=== PATIENT | male | born 1950 | race Caucasian/White ===

== ENCOUNTER 2023-06-23 10:19 | Inpatient (IN) | payer MEDICARE, BC, SELFPAY ==
[2023-06-23 10:26] VITALS: BP 115/78; PULSE 105; RESP 18; TEMP 36.2; O2SAT 98; BMI 23.4
[2023-06-23] MEDS: 0.9 % SODIUM CHLORIDE 1000 ml 1,000 ML IV (10:45)
--- NOTE | 2023-06-23 10:57 | ED_ITS ---
HPI - Nausea/Vomiting/Diarrhea General Time Seen by Provider: 10:57 Date Seen: 06/23/23 Chief complaint: Nausea/Vomiting Stated complaint: Possible intestinal blockage Source: patient and RN notes reviewed Mode of arrival: ambulatory Limitations: no limitations History of Present Illness HPI Narrative: Wade is a very pleasant 73-year-old gentleman with history of enlarged prostate otherwise healthy who comes to the emergency room with his for evaluation regarding vomiting and inability to stool. Patient notes that over the past week he and his had been camping up [place]. He notes that they do have a camper and he is able to urinate during the night but he had held off on stooling because it was a walk to the out house. He states that he was stooling normally until the past 36 hours when he started noticing that his stools were a lot harder. Yesterday morning he started feeling nauseated and by the afternoon had episodes of vomiting. Vomiting also occur during the evening and now this morning. He has not stooled today. He has not noticed any blood in his stool. He has not had a fever. He notes that after vomiting his discomfort is much improved. Currently he denies any abdominal pain. Timothy has a history of bilateral inguinal hernia repair with mesh. He has not noticed any unusual weight loss over the last year. He did have constipation in need of an enema when he was 33 and had a tonsillectomy. At that time he had been on narcotics. No recent pain medications. Patient notes drinking water from a portable source at the campground. Otherwise did not drink any water from a [place] or river. Cipro antibiotic 3 weeks ago after a finger injury. This was for 5 days only. No known ill contacts. Bruise in his note that there were many ticks flies and mosquitos when they were up [place]. He does not report any tick being attached for an extended period. Notes when they got home he did fine did of deer tick but it was crawling and not attached. They have not noticed any lesions/bull's-eye appearing redness. Associated nausea: Yes Related Data Home Medications Medication Instructions Recorded Confirmed tamsulosin 0.4 mg capsule 0.4 mg PO DAILY 06/23/23 06/23/23 Allergies Allergy/AdvReac Type Severity Reaction Status Date / Time No Known Drug Allergies Allergy Verified 06/23/23 09:58 Review of Systems Status of ROS: Reports: 10 or more systems reviewed and unremarkable except as noted in History and below Const: Reports: chills; Denies: fever or fatigue ENMT: Denies: difficulty swallowing or hoarseness Cardio: Denies: chest pain or shortness of breath with exertion Resp: Denies: shortness of breath, cough or wheezing GI: Reports: abdominal pain (Intermittent), nausea, vomiting and constipation; Denies: diarrhea, difficulty swallowing or blood in stool : Denies: painful urination or urinary frequency Musculo: Denies: back pain Endo: Denies: fatigue Allergy/Immuno: Denies: wheezing PFSH PFS Social History Smoking Status: Former smoker How often do you have a drink containing alcohol: 2-4 times a month How many standard drinks containing alcohol do you have on a typical day: 1 or 2 AUDIT-C Alcohol total score: 2 Non-prescribed substance use: marijuana (any form) Exam Narrative: Exam Narrative: Alert and oriented. Eyes are clear. Face symmetrical. No obvious distress at this time. Heart with regular rate and rhythm and lungs are clear to auscultation. Abdomen is soft there is no tenderness palpated. I do think he is somewhat distended he is very thin. Lower extremities without edema. Rectal exam shows no evidence of hemorrhoids. Digital exam accomplished. No significant stool in the rectal vault. I did have patient bear down and there is no stool that seems to come down with that. Const: Vital Signs, click to edit/add: Vital Signs - 24 hr 06/23/23 10:26 06/23/23 13:01 Temperature 97.2 F L 97.9 F Pulse Rate [Right Pulse Oximeter] 105 H 81 Respiratory Rate 18 Blood Pressure [Ri ght Upper Arm] 115/78 117/78 Pulse Oximetry 98 95 Oxygen Delivery Me thod Room Air Room Air Documenting provider has reviewed patient's vital signs: yes Course Course Hospital Course: At this time differential diagnosis includes constipation, bowel obstruction, diverticulitis, colitis, ileus, gastritis. Initial plans were to do an enema but upon digital exam there was very little stool in the vault. I think we will check labs to include CBC, comprehensive, CRP, lipase and urinalysis. Will also go ahead with abdominal CT. Reevaluation(s) Reevaluation #1: Patient has had no further retching and continues to feel better. See 1 L of normal saline. Vital Signs Vital signs: Initial Vital Signs Temperature 97.2 F L 06/23/23 10:26 Temperature Source Temporal Artery Scan 06/23/23 10:26 Pulse Rate 105 H 06/23/23 10:26 Respiratory Rate 18 06/23/23 10:26 Blood Pressure 115/78 06/23/23 10:26 Blood Pressure Mean 90 06/23/23 10:26 Blood Pressure Position Sitting 06/23/23 10:26 Pulse Oximetry 98 06/23/23 10:26 Oxygen Delivery Method Room Air 06/23/23 10:26 Vital Signs Temperature 97.2 F L 06/23/23 10:26 Pulse Rate 105 H 06/23/23 10:26 Respiratory Rate 18 06/23/23 10:26 Blood Pressure 115/78 06/23/23 10:26 Pulse Oximetry 98 06/23/23 10:26 Oxygen Delivery Method Room Air 06/23/23 10:26 Temperature 97.9 F 06/23/23 13:01 Pulse Rate 81 06/23/23 13:01 Respiratory Rate 18 06/23/23 10:26 Blood Pressure 117/78 06/23/23 13:01 Pulse Oximetry 95 06/23/23 13:01 Oxygen Delivery Method Room Air 06/23/23 13:01 MDM - Nausea/Vomiting/Diarrhea MDM Narrative Medical decision making narrative: 1. Small bowel obstruction-transition point appears to be in the right lower quadrant. Likely secondary to adhesions in the area of the inguinal hernia repair. Vital signs as well as labs are reassuring at this time. CRP slightly elevated but patient has normal white count. I spoke with patient about the importance of bowel rest, fluids as well as nausea and vomiting control. He is agreeable to staying here in the hospital. 2. Vomiting-resolved after Zofran 4 mg. 1 L of normal saline given and will now continue with maintenance fluids at 125 mils per hour. At this time I do not feel an NG needs to be placed but will need to reconsider should he have vomiting resume. 3. Disposition-admission to the [facility] under the care of hospitalist. I did speak with Dr. Veras who accepts this patient. Unfortunately we do not have beds immediately available but we should have extra staffing and bed availability at 1900 hours. That is 5 hours from now. Medical Records Attestation: I reviewed the patient's medical records. Lab Data Attestation: I reviewed the patient's lab results. Labs: Lab Results 06/23/23 Range/Units 11:30 WBC 10.80 (4.50-11.00) K/uL RBC 5.76 (4.30-5.90) m/uL Hgb 16.1 (13.5-17.5) gm/dL Hct 49.1 (37.0-53.0) % MCV 85 (80-100) fL MCH 28 (26-34) pg MCHC 33 (32-36) gm/dL RDW Coeff of [place] 14.0 (11.5-15.5) % Plt Count 222 (140-440) K/uL Neut % (Auto) 79.5 H (42.0-72.0) % Lymph % (Auto) 10.5 L (20-44) % [place] % (Auto) 9.7 (0.0-11.0) % Eos % (Auto) 0.0 (0.0-7.0) % Baso % (Auto) 0.2 (0.0-3.0) % Neut # (Auto) 8.60 H (1.7-7.0) K/uL Lymph # (Auto) 1.10 (0.90-2.90) K/uL [place] # (Auto) 1.00 H (0.00-0.90) K/UL Eos # (Auto) 0.00 (0.00-0.50) K/uL Baso # (Auto) 0.02 (0.00-0.30) K/uL Abs Immat Gran (auto) 0.01 (0.00-0.30) K/uL Imm/Tot Granulo (auto) 0.1 % Sodium 135 (135-149) mmol/L Potassium 4.2 (3.6-5.1) mmol/L Chloride 100 (96-114) mmol/L Carbon Dioxide 22 (20-32) mmol/L BUN 19 (7-30) mg/dL Creatinine 1.0 (0.5-1.5) mg/dL Estimated Creat Clear 72.21 Estimated GFR 79 ml/min Glucose 139 H (60-115) mg/dL Calcium 9.7 (8.4-10.6) mg/dL Total Bilirubin 1.9 H (0.1-1.5) mg/dL AST 36 H (12-35) U/L ALT 25 (4-50) U/L Alkaline Phosphatase 80 (40-150) U/L C-Reactive Protein 1.3 H (0.5-1.0) mg/dL Total Protein 8.2 (6.0-8.3) g/dL Albumin 4.3 (3.3-5.0) g/dL Lipase 98 (23-300) U/L Stool Occult Blood Negative (Negative) Imaging Data CT scan - abdomen: Attestation: I have reviewed the pertinent imaging results. My impression: No obvious small-bowel distension and fluids. Radiologist's impression: Lower chest: Scattered atelectasis. Liver: Unremarkable. Normal in size and attenuation. No suspicious masses. Gallbladder and bile ducts: Unremarkable. No stones or inflammation. No biliary dilatation. Pancreas: Unremarkable. No mass or inflammation. Spleen: Unremarkable. Normal in size. No masses. Adrenal glands: Unremarkable. No nodules. Kidneys: Bilateral renal cysts. No suspicious masses, stones, or hydronephrosis. GI tract: Multiple dilated loops of small bowel with transition point in the right lower quadrant (series 2/image 108, series 4/image 56). Colonic diverticulosis without diverticulitis. Appendectomy. Vasculature: Abdominal aorta is normal in caliber. Mesenteric arteries are patent. Lymph nodes: No lymphadenopathy. Peritoneum/Abdominal Wall: Unremarkable. No sign of mass or infiltration. No free air or significant free fluid. Pelvis: Small volume free fluid in the pelvis. Prostatomegaly. Bones: Degenerative changes. IMPRESSION: Findings suggestive of small bowel obstruction with transition point in the right lower quadrant, possibly from adhesions. Small volume free fluid in the pelvis, likely reactive. Colonic diverticulosis without diverticulitis. Discharge Plan Discharge Clinical Impression: Small bowel obstruction Vomiting Qualifiers: Vomiting type: unspecified Nausea presence: with nausea Qualified Code(s): R11.2 - Nausea with vomiting, unspecified Patient Disposition: Admitted As Observation Condition: Improved
[2023-06-23] MEDS: ONDANSETRON 2 MG/ML inj 4 MG IVP ×3 (11:10→22:42)
--- NOTE | 2023-06-23 11:27 | CRLHL7_ITS ---
For Patients: As a result of the Century Cures Act, medical imaging exams and procedure reports are released immediately into your electronic medical record. You may view this report before your referring provider. If you have questions, please contact your health care provider. INDICATION: Vomiting. TECHNIQUE: CT abdomen and pelvis acquired with 84 cc Isovue 370 IV contrast. COMPARISON: 07/16/2020. FINDINGS: Lower chest: Scattered atelectasis. Liver: Unremarkable. Normal in size and attenuation. No suspicious masses. Gallbladder and bile ducts: Unremarkable. No stones or inflammation. No biliary dilatation. Pancreas: Unremarkable. No mass or inflammation. Spleen: Unremarkable. Normal in size. No masses. Adrenal glands: Unremarkable. No nodules. Kidneys: Bilateral renal cysts. No suspicious masses, stones, or hydronephrosis. GI tract: Multiple dilated loops of small bowel with transition point in the right lower quadrant (series 2/image 108, series 4/image 56). Colonic diverticulosis without diverticulitis. Appendectomy. Vasculature: Abdominal aorta is normal in caliber. Mesenteric arteries are patent. Lymph nodes: No lymphadenopathy. Peritoneum/Abdominal Wall: Unremarkable. No sign of mass or infiltration. No free air or significant free fluid. Pelvis: Small volume free fluid in the pelvis. Prostatomegaly. Bones: Degenerative changes. IMPRESSION: Findings suggestive of small bowel obstruction with transition point in the right lower quadrant, possibly from adhesions. Small volume free fluid in the pelvis, likely reactive. Colonic diverticulosis without diverticulitis. Please note that all CT scans at this facility use dose modulation, iterative reconstruction, and/or weight-based dosing when appropriate to reduce radiation dose to as low as reasonably achievable. Dictated by Maik Wlid MD @ 06/23/2023 1:18:08 PM (Electronically Signed)
[2023-06-23 11:40] LABS: Basophils Absolute Auto 0.02 K/uL (0.00-0.30); Basophils Percent Auto 0.2 % (0.0-3.0); Hematocrit 49.1 % (37.0-53.0); Hemoglobin* 16.1 gm/dL (13.5-17.5); Immature Granulocytes Abs Auto 0.01 K/uL (0.00-0.30); Immature Granulocytes Pct Auto 0.1 %; Lymphocytes Percent Auto 10.5 % (20-44); Mean Corpuscular HGB Conc 33 gm/dL (32-36); Mean Corpuscular Hemoglobin 28 pg (26-34); Mean Corpuscular Volume 85 fL (80-100); Monocytes Percent Auto 9.7 % (0.0-11.0); Neutrophils Percent Auto 79.5 % (42.0-72.0); Platelet Count* 222 K/uL (140-440); Red Blood Count 5.76 m/uL (4.30-5.90)
[2023-06-23 11:49] LABS: Slide Review Reflex No
[2023-06-23 11:56] LABS: Albumin* 4.3 g/dL (3.3-5.0); Chloride* 100 mmol/L (96-114); Potassium* 4.2 mmol/L (3.6-5.1); Sodium* 135 mmol/L (135-149)
[2023-06-23 11:57] LABS: Fecal Occult Blood* Negative (Negative)
[2023-06-23 11:58] LABS: Est. Creatinine Clearance* 72.21; Estimated Glomerular Filt Rate 79 ml/min
[2023-06-23 11:59] LABS: Alanine Aminotransferase* 25 U/L (4-50); Alkaline Phosphatase* 80 U/L (40-150); Aspartate Amino Transferase* 36 U/L (12-35); Bilirubin Total* 1.9 mg/dL (0.1-1.5); Blood Urea Nitrogen* 19 mg/dL (7-30); Carbon Dioxide* 22 mmol/L (20-32); Glucose* 139 mg/dL (60-115); Total Protein* 8.2 g/dL (6.0-8.3)
[2023-06-23 12:00] LABS: Calcium* 9.7 mg/dL (8.4-10.6); Lipase* 98 U/L (23-300)
[2023-06-23 12:02] LABS: C Reactive Protein* 1.3 mg/dL (0.5-1.0)
[2023-06-23] MEDS: DOCUSATE SODIUM/BENZOCAINE 5 ML ENEMA PR (12:15)
[2023-06-23 13:01] VITALS: BP 117/78; PULSE 81; TEMP 36.6; O2SAT 95
[2023-06-23] MEDS: 0.9 % SODIUM CHLORIDE 1000 ml 1,000 ML 125 ML IV ×2 (13:51→21:30)
[2023-06-23 14:42] LABS: Appearance Urine Clear (Clear); Bilirubin Urine Negative (Negative); Blood Urine 1+ (Negative); Color Urine Yellow (Yellow); Glucose Urine Negative (Negative); Ketones Urine 2+ (Negative); Leukocyte Esterase Urine Negative (Negative); Nitrite Urine Negative (Negative); Protein Urine Trace (Negative); Specific Gravity Urine 1.015 (1.000-1.030); Urobilinogen Urine 0.2 (0.2-1.0); pH Urine 5.5 (5.0-8.5)
[2023-06-23 15:11] LABS: WBC Urine 0-2 (0-5)
[2023-06-23 15:12] LABS: Bacteria Urine Few
[2023-06-23 15:13] LABS: Hyaline Casts Urine Few (None-Few)
--- NOTE | 2023-06-23 16:19 | CRLHL7_ITS ---
For Patients: As a result of the Century Cures Act, medical imaging exams and procedure reports are released immediately into your electronic medical record. You may view this report before your referring provider. If you have questions, please contact your health care provider. INDICATION: Verify NG tube placement. TECHNIQUE: Chest 1 view. COMPARISON: Chest radiograph 07/16/[address] abdomen and pelvis 06/23/2023. FINDINGS: The enteric tube tip is in the stomach approximately 6 cm distal to the GE junction. The side hole is not well visualized but likely above the GE junction. The cardiomediastinal silhouette size is normal. There is no focal pulmonary opacity, pleural effusion or pneumothorax. The visualized osseous structures are unremarkable for age. Impression: Enteric tube tip is in the stomach. The side hole is not well visualized but is likely above the GE junction. Dictated by Kindra Jaquez MD @ 06/23/2023 4:57:22 PM (Electronically Signed)
--- NOTE | 2023-06-23 16:50 | ED.NURSE ---
NG placed in ED, clamp set at 55 cm x-ray performed awaiting confirmation , pt hooked to LIS, positive production of gastric content.
[2023-06-23 19:30] VITALS: O2SAT 94
--- NOTE | 2023-06-23 19:43 | P.IMHP_ITS ---
Hospitalist- H&P: HPI History of Present Illness Date Seen: 06/23/23 Chief complaint: Possible intestinal blockage Narrative: Wade Wong is a 73 year old male presented through the emergency department for concerns of bilateral lower abdominal pain. He recently broke his right 3rd finger playing softball; he did not receive or take any narcotics for this. He was in his usual state of health otherwise when he had some coffee Saturday morning and then developed bilateral lower abdominal pain. By the afternoon he felt bloated. He tried some smooth move tea and prune juice thinking that he was just constipated, but then started having projectile vomiting. He denies any fever, bloody or coffee-ground emesis, travel, recent sick contacts or suspect food. He has had very little flatus during this time frame, but maybe had a little this morning. His last bowel movement was yesterday morning. He usually goes every day. He has no family history of bowel disease. Review of Systems Status of ROS: Reports: 10 or more systems reviewed and unremarkable except as noted in History and below [facility] Medical History (Updated 06/23/23 @ 15:43 by Jael Winn MD) Closed nondisplaced fracture of phalanx of right middle finger ?S62.602A - Fracture of unspecified phalanx of right middle finger, initial encounter for closed fracture (ICD-10) Bilateral sensorineural hearing loss ?H90.3 - Sensorineural hearing loss, bilateral (ICD-10) BPH with urinary obstruction ?N40.1 - Benign prostatic hyperplasia with lower urinary tract symptoms (ICD- 10) ?N13.8 - Other obstructive and reflux uropathy (ICD-10) Prediabetes ?R73.03 - Prediabetes (ICD-10) Benign neoplasm of colon ?D12.6 - Benign neoplasm of colon, unspecified (ICD-10) Chronic prostatitis ?N41.1 - Chronic prostatitis (ICD-10) Mixed hyperlipidemia ?E78.2 - Mixed hyperlipidemia (ICD-10) Surgical History (Updated 06/23/23 @ 14:55 by Jael Winn MD) H/O vasectomy ?Z98.52 - Vasectomy status (ICD-10) Hx of tonsillectomy ?Z90.89 - Acquired absence of other organs (ICD-10) History of inguinal herniorrhaphy ?Z98.890 - Other specified postprocedural states (ICD-10) ?Z87.19 - Personal history of other diseases of the digestive system (ICD-10) H/O hernia repair ?Z98.890 - Other specified postprocedural states (ICD-10) ?Z87.19 - Personal history of other diseases of the digestive system (ICD-10) Hx of colonoscopy ?Z98.890 - Other specified postprocedural states (ICD-10) H/O cataract extraction ?Z98.49 - Cataract extraction status, unspecified eye (ICD-10) Hx of appendectomy ?Z90.49 - Acquired absence of other specified parts of digestive tract (ICD- 10) Social History (Updated 06/23/23 @ 19:45 by Jael Winn MD) Narrative: Lives independently with , Rebecca. Denies tobacco use having quit 15-20 years ago and smoked 20 pack years. Drinks 5 beers per week, usually no more than 1 at a sitting. Denies recreational drug use. Smoking Status: Former smoker How often do you have a drink containing alcohol: 2-4 times a month How many standard drinks containing alcohol do you have on a typical day: 1 or 2 AUDIT-C Alcohol total score: 2 Meds Home Medications and Allergies Home Medications Medication Instructions Recorded Confirmed Type ciprofloxacin HCl 250 mg tablet 250 mg PO DIRECTED PRN 06/23/23 06/23/23 History tamsulosin 0.4 mg capsule 0.4 mg PO DAILY@12 06/23/23 06/23/23 History Allergies Allergy/AdvReac Type Severity Reaction Status Date / Time No Known Drug Allergies Allergy Verified 06/23/23 09:58 Exam Narrative: Exam Narrative: General: No acute distress. Awake alert oriented x3. Tall, lanky. HEENT: Normocephalic atraumatic, pupils equally round and reactive to light and accommodation. Oropharynx clear. Mucous membranes are moist. No cervical lymphadenopathy, thyromegaly or carotid bruits. No JVD. Cardiovascular: Regular rate and rhythm. No murmurs, gallops, or rubs. Chest: No increased work of breathing. Clear to auscultation bilaterally. No crackles or wheezes. Abdomen: Bowel sounds hypoactive. Soft, mildly distended, tender bilaterally in the lower abdomen, right more than left. No hepatosplenomegaly or masses. Extremities: Right middle finger is in a splint. No edema, no cyanosis or clubbing. Skin: No jaundice, no pallor, no rashes. Neuro: Grossly intact. No focal deficits. Const: Vital Signs, click to edit/add: Vital Signs - 24 hr 06/23/23 10:26 06/23/23 13:01 Temperature 97.2 F L 97.9 F Pulse Rate [Right Pulse Oximeter] 105 H 81 Respiratory Rate 18 Blood Pressure [Ri ght Upper Arm] 115/78 117/78 Pulse Oximetry 98 95 Oxygen Delivery Me thod Room Air Room Air Documenting provider has reviewed patient's vital signs: yes Hospitalist - H&P: Result Labs Labs: Short CBC 06/23/23 Range/Units 11:30 WBC 10.80 (4.50-11.00) K/uL Hgb 16.1 (13.5-17.5) gm/dL Hct 49.1 (37.0-53.0) % Plt Count 222 (140-440) K/uL BMP 06/23/23 11:30 Sodium 135 Potassium 4.2 Chloride 100 Carbon Dioxide 22 BUN 19 Creatinine 1.0 Glucose 139 H Calcium 9.7 Liver Function 06/23/23 Range/Units 11:30 Total Bilirubin 1.9 H (0.1-1.5) mg/dL AST 36 H (12-35) U/L ALT 25 (4-50) U/L Alkaline Phosphatase 80 (40-150) U/L Albumin 4.3 (3.3-5.0) g/dL Urine 06/23/23 Range/Units 13:40 Urine Color Yellow (Yellow) Urine Appearance Clear (Clear) Urine pH 5.5 (5.0-8.5) Ur Specific [place] 1.015 (1.000-1.030) Urine Protein Trace A (Negative) Urine Glucose (UA) Negative (Negative) Ordering Physician: Audrey Liriano M.D. Date of Service: 06/23/23 Procedure(s): CT abdomen pelvis w con Accession Number(s): [id number] cc: Jose F Walsh M.D.; Audrey Liriano M.D.~ For Patients: As a result of the Century Cures Act, medical imaging exams and procedure reports are released immediately into your electronic medical record. You may view this report before your referring provider. If you have questions, please contact your health care provider. INDICATION: Vomiting. TECHNIQUE: CT abdomen and pelvis acquired with 84 cc Isovue 370 IV contrast. COMPARISON: 07/16/2020. FINDINGS: Lower chest: Scattered atelectasis. Liver: Unremarkable. Normal in size and attenuation. No suspicious masses. Gallbladder and bile ducts: Unremarkable. No stones or inflammation. No biliary dilatation. Pancreas: Unremarkable. No mass or inflammation. Spleen: Unremarkable. Normal in size. No masses. Adrenal glands: Unremarkable. No nodules. Kidneys: Bilateral renal cysts. No suspicious masses, stones, or hydronephrosis. GI tract: Multiple dilated loops of small bowel with transition point in the right lower quadrant (series 2/image 108, series 4/image 56). Colonic diverticulosis without diverticulitis. Appendectomy. Vasculature: Abdominal aorta is normal in caliber. Mesenteric arteries are patent. Lymph nodes: No lymphadenopathy. Peritoneum/Abdominal Wall: Unremarkable. No sign of mass or infiltration. No free air or significant free fluid. Pelvis: Small volume free fluid in the pelvis. Prostatomegaly. Bones: Degenerative changes. IMPRESSION: Findings suggestive of small bowel obstruction with transition point in the right lower quadrant, possibly from adhesions. Small volume free fluid in the pelvis, likely reactive. Colonic diverticulosis without diverticulitis. Please note that all CT scans at this facility use dose modulation, iterative reconstruction, and/or weight-based dosing when appropriate to reduce radiation dose to as low as reasonably achievable. Dictated by Maik Wild MD @ 06/23/2023 1:18:08 PM (Electronically Signed) Ordering Physician: Audrey Liriano M.D. Date of Service: 06/23/23 Procedure(s): XR chest 1V portable Accession Number(s): [id number] cc: Jose F Walsh M.D.; Audrey Liriano M.D.~ For Patients: As a result of the 21st Century Cures Act, medical imaging exams and procedure reports are released immediately into your electronic medical record. You may view this report before your referring provider. If you have questions, please contact your health care provider. INDICATION: Verify NG tube placement. TECHNIQUE: Chest 1 view. COMPARISON: Chest radiograph 07/16/[address] abdomen and pelvis 06/23/2023. FINDINGS: The enteric tube tip is in the stomach approximately 6 cm distal to the GE junction. The side hole is not well visualized but likely above the GE junction. The cardiomediastinal silhouette size is normal. There is no focal pulmonary opacity, pleural effusion or pneumothorax. The visualized osseous structures are unremarkable for age. Impression: Enteric tube tip is in the stomach. The side hole is not well visualized but is likely above the GE junction. Dictated by Kindra Jaquez MD @ 06/23/2023 4:57:22 PM (Electronically Signed) Assessment and Plan Assessment and plan (1) Small bowel obstruction: Status: Acute Plan This is a fairly healthy individual who history an appendectomy and inguinal hernia repair who presents with a suspected small bowel obstruction with a transition point in the right lower quadrant where he feels the most pain. Admit for treatment of SBO which I suspect will take [address] NG tube to low intermittent suction and keep NPO. I will start IV fluids for hydration. If he does not improve or is worsening then may need to consult with General surgery. Monitor electrolytes while getting suction through NG tube.
--- NOTE | 2023-06-23 19:59 | CRLHL7_ITS ---
For Patients: As a result of the Century Cures Act, medical imaging exams and procedure reports are released immediately into your electronic medical record. You may view this report before your referring provider. If you have questions, please contact your health care provider. Indication: Advanced NG tube. Technique: Abdomen 1 view. Comparison: June 23, 2023. Findings/Impression: Bowel: Bowel pattern is normal. Subdiaphragmatic enteric tube with tip and proximal port within the stomach. Soft tissues: No sign of free air. No sign of soft tissue mass. No suspicious calcifications. Bones: Unremarkable for age. Dictated by Maik Wild MD @ 06/23/2023 9:00:03 PM (Electronically Signed)
[2023-06-23 20:10] VITALS: BP 117/70; RESP 20; TEMP 36.8; O2SAT 94; BMI 23.7
[2023-06-23] MEDS: SODIUM CHLORIDE 0.9 % (FLUSH) 10 ML SYRINGE 5 ML IVF ×2 (21:31→22:43)
[2023-06-23 22:52] VITALS: BP 106/68; PULSE 98; RESP 18; TEMP 36.8; O2SAT 98
[2023-06-24] VITALS (7 sets, daily range): BP systolic 109–117; BP diastolic 69–79; PULSE 76–94; RESP 16–20; TEMP 36.4–36.9; O2SAT 94–95
[2023-06-24] MEDS: 0.9 % SODIUM CHLORIDE 1000 ml 1,000 ML 125 ML IV ×3 (04:07→20:11)
--- NOTE | 2023-06-24 05:45 | PC.NURSE ---
[id number] Pt pleasant and cooperative, slept well during night. Orders given to advance NG tube to 60cm, completed and pt tolerated well, x-ray confirmed location. NG to LIS. Pt denies N/V this shift, some abd discomfort after eating ice chips, educated on importance of NPO status and limiting oral intake, pt acknowledged understanding.
[2023-06-24 07:20] LABS: Chloride* 104 mmol/L (96-114); Potassium* 3.7 mmol/L (3.6-5.1); Sodium* 138 mmol/L (135-149)
[2023-06-24 07:23] LABS: Blood Urea Nitrogen* 15 mg/dL (7-30); Calcium* 8.7 mg/dL (8.4-10.6); Carbon Dioxide* 26 mmol/L (20-32); Creatinine* 0.9 mg/dL (0.5-1.5); Est. Creatinine Clearance* 72.21; Estimated Glomerular Filt Rate 90 ml/min; Glucose* 93 mg/dL (60-115)
[2023-06-24] MEDS: TAMSULOSIN HCL 0.4 MG CAPSULE PO (12:05)
--- NOTE | 2023-06-24 14:15 | P.IMPN_ITS ---
Progress Note: A&P Assessment and plan (1) Small bowel obstruction: Problem details: - NG placed 06/23, still has fair amount of output; will remove when output decreases - passing flatus, reassuring - last colonoscopy in 2019 with tubular adenoma noted - History of bilateral hernia repairs Status: Acute (2) Elevated LFTs: Problem details: - elevated bilirubin and AST on admission, no liver disease history or alcohol overuse - will follow Status: Acute Plan - continue NG for now - lovenox for ppx Subjective Date Seen: 06/24/23 Interval history: Wade is tolerating his NG tube, does feel little bit better today. He is passing flatus. NG still has a fair amount of output at this time. Exam Narrative: Exam Narrative: GEN: Alert and oriented, pleasant and nontoxic in appearance HEENT: Normal external ears, EOMIs bilaterally, no scleral icterus CV: RRR, No concerning murmurs R: LCTA bilaterally without concerning wheezing, air movement adequate Ab: Mild distension, tolerates palpation, hypoactive bowel sounds throughout Ext: wwp, no concerning edema Skin: No concerning skin lesions or rashes on exposed skin Neuro: Nonfocal Psych: Appropriate Const: Vital Signs, click to edit/add: Vital Signs - 24 hr 06/23/23 19:30 06/23/23 20:10 06/23/23 22:52 Temperature 98.2 F 98.2 F Pulse Rate [Pulse Oximeter] 98 Respiratory Rate 20 18 Blood Pressure [Ri ght Arm] 117/70 106/68 Pulse Oximetry 94 94 98 Oxygen Delivery Me thod Room Air Room Air 06/24/23 02:39 06/24/23 08:30 06/24/23 11:00 Temperature 98.4 F 98.4 F Pulse Rate [Pulse Oximeter] 77 76 Respiratory Rate 18 16 18 Blood Pressure [Ri ght Arm] 110/73 109/70 Pulse Oximetry 95 Oxygen Delivery Me thod Room Air Labs Labs: Laboratory Results - last 24 hr 06/23/23 06/24/23 13:40 06:37 Sodium 138 Potassium 3.7 Chloride 104 Carbon Dioxide 26 BUN 15 Creatinine 0.9 Estimated Creat Clear 72.21 Estimated GFR 90 Glucose 93 Calcium 8.7 Urine Color Yellow Urine Appearance Clear Urine pH 5.5 Ur Specific [place] 1.015 Urine Protein Trace A Urine Glucose (UA) Negative Urine Ketones 2+ A Urine Blood 1+ A Urine Nitrite Negative Urine Bilirubin Negative Urine Urobilinogen 0.2 Ur Leukocyte Esterase Negative Urine RBC 5-10 A Urine WBC 0-2 Ur Squamous Epith Cells None Urine Bacteria Few A Hyaline Casts Few
--- NOTE | 2023-06-24 17:27 | PC.NURSE ---
Patient was up ambulating with stand by assist and no assistive devices. Up x4 in hallway. Tolerating well. Does occasionally report abdominal discomfort that he states is gas pain after ambulating that resolves with rest. Requiring no additional interventions. Patient reports passing gas x2 this shift. Tolerating sips and chips. NG patent on LIS. IV patent.
[2023-06-24] MEDS: SODIUM CHLORIDE 0.9 % (FLUSH) 10 ML SYRINGE 5 ML IVF (20:19)
--- NOTE | 2023-06-24 22:36 | PC.NURSE ---
[id number] Pt walking halls this shift, denies N/V, rated gas pain 2/10. NG tub in place to 60 cm, thick dark brown output which has slowed down since beginning of shift. Pt states he passed gas earlier in the day but hasn't this shift.
[2023-06-25 04:05] VITALS: BP 117/71; PULSE 79; RESP 18; TEMP 36.5; O2SAT 94
[2023-06-25] MEDS: 0.9 % SODIUM CHLORIDE 1000 ml 1,000 ML 125 ML IV ×3 (04:32→19:53)
[2023-06-25] MEDS: ONDANSETRON 2 MG/ML inj 4 MG IVP ×2 (04:38→21:10)
[2023-06-25] MEDS: SODIUM CHLORIDE 0.9 % (FLUSH) 10 ML SYRINGE 5 ML IVF (04:39)
[2023-06-25 06:55] LABS: Basophils Absolute Auto 0.05 K/uL (0.00-0.30); Basophils Percent Auto 0.6 % (0.0-3.0); Eosinophils Absolute Auto 0.01 K/uL (0.00-0.50); Eosinophils Percent Auto 0.1 % (0.0-7.0); Hematocrit 42.4 % (37.0-53.0); Hemoglobin* 13.4 gm/dL (13.5-17.5); Immature Granulocytes Abs Auto 0.01 K/uL (0.00-0.30); Immature Granulocytes Pct Auto 0.1 %; Lymphocytes Percent Auto 11.2 % (20-44); Mean Corpuscular HGB Conc 32 gm/dL (32-36); Mean Corpuscular Hemoglobin 28 pg (26-34); Mean Corpuscular Volume 88 fL (80-100); Monocytes Percent Auto 14.3 % (0.0-11.0); Neutrophils Percent Auto 73.7 % (42.0-72.0); Platelet Count* 158 K/uL (140-440); RDW Coefficient of Variation % 14.1 % (11.5-15.5); Red Blood Count 4.82 m/uL (4.30-5.90)
[2023-06-25 07:00] VITALS: BP 113/73; PULSE 87; RESP 16; RESP 18; TEMP 36.6; O2SAT 97
[2023-06-25 07:07] LABS: Slide Review Reflex No
--- NOTE | 2023-06-25 07:29 | PC.NURSE ---
Pt alert and oriented x3. Afebrile. Pt denies pain, chest pain, and vomiting. Pt reports nausea, managed with PRN medication. Pt NG tube was noted to have little output and pt reported not seeing the fluid move for a while, 30cc lavage was performed to NG tube, drainage was noted to be thick and brown, NG is now patent and draining. NG output was 170ml. Pt is up SBA and tolerating an NPO diet. ?
[2023-06-25 07:46] LABS: Albumin* 3.5 g/dL (3.3-5.0)
[2023-06-25 07:47] LABS: Chloride* 105 mmol/L (96-114); Potassium* 3.5 mmol/L (3.6-5.1); Sodium* 139 mmol/L (135-149)
[2023-06-25 07:49] LABS: Creatinine* 0.8 mg/dL (0.5-1.5); Est. Creatinine Clearance* 72.21; Estimated Glomerular Filt Rate 93 ml/min
[2023-06-25 07:50] LABS: Alanine Aminotransferase* 18 U/L (4-50); Alkaline Phosphatase* 64 U/L (40-150); Aspartate Amino Transferase* 26 U/L (12-35); Bilirubin Direct* 0.1 mg/dL (0.0-0.5); Bilirubin Total* 1.5 mg/dL (0.1-1.5); Blood Urea Nitrogen* 15 mg/dL (7-30); Calcium* 8.4 mg/dL (8.4-10.6); Carbon Dioxide* 26 mmol/L (20-32); Glucose* 97 mg/dL (60-115); Total Protein* 6.8 g/dL (6.0-8.3)
[2023-06-25 11:00] VITALS: BP 102/75; PULSE 87; RESP 18; TEMP 36; O2SAT 96
[2023-06-25] MEDS: TAMSULOSIN HCL 0.4 MG CAPSULE PO (12:25)
--- NOTE | 2023-06-25 14:35 | PC.NURSE ---
End of Shift: Pt pleasant and cooperative throughout shift, reporting pain 1/10. NG tube removed per MD order. Tolerating water, ice chips, jello and popsicles well with no c/o N/V. Continent with bladder utilizing bedside commode when in bed with IV otherwise toilet when ambulating. No BM throughout shift, pt reports flatus. Ambulating independently.
[2023-06-25 15:20] VITALS: BP 122/73; PULSE 72; RESP 18; TEMP 37; O2SAT 97
--- NOTE | 2023-06-25 16:41 | PM.IMPN1 ---
Progress Note: A&P Assessment and plan (1) Small bowel obstruction: Problem details: - NG placed 06/23, still has fair amount of output; will remove 06/25 and slowly advance diet - passing flatus, reassuring - last colonoscopy in 2019 with tubular adenoma noted - History of bilateral hernia repairs Status: Acute (2) Elevated LFTs: Problem details: - elevated bilirubin and AST on admission, no liver disease history or alcohol overuse - will follow Status: Acute Plan - NG out today and advance diet - Lovenox for prophylaxis - possibly home tomorrow Subjective Date Seen: 06/25/23 Interval history: Wade continues to feel a bit better each day. He is tolerating ice chips and popsicles without significant symptoms. NG output has decreased. He continues to pass flatus. Exam Narrative: Exam Narrative: GEN: Alert And oriented, nontoxic HEENT: EOMIs bilaterally, no scleral icterus CV: RRR, No concerning murmurs, rubs, or gallops R: LCTA bilaterally without concerning wheezing Ab: soft and tolerates exam, hypoactive bowel sounds noted throughout Ext: wwp, no concerning edema Skin: No concerning skin lesions or rashes on exposed skin Neuro: Nonfocal Psych: Appropriate Const: Vital Signs, click to edit/add: Vital Signs - 24 hr 06/24/23 19:00 06/24/23 19:30 06/24/23 23:00 Temperature 98.5 F Pulse Rate [Pulse Oximeter] 94 89 Respiratory Rate 18 20 Blood Pressure [Ri ght Arm] 117/79 Pulse Oximetry 94 94 Oxygen Delivery Me thod Room Air 06/24/23 23:00 06/25/23 04:05 06/25/23 07:00 Temperature 97.6 F 97.7 F Pulse Rate [Pulse Oximeter] 89 79 87 Respiratory Rate 20 18 16 Blood Pressure [Ri ght Arm] 116/72 117/71 Pulse Oximetry 94 94 Oxygen Delivery Me thod Room Air Room Air 06/25/23 07:00 06/25/23 11:00 06/25/23 15:20 Temperature 97.9 F 96.8 F L 98.6 F Pulse Rate [Pulse Oximeter] 87 87 72 Respiratory Rate 18 18 18 Blood Pressure [Ri ght Arm] 113/73 102/75 122/73 Pulse Oximetry 97 96 97 Oxygen Delivery Me thod Room Air Room Air Room Air Labs Labs: Laboratory Results - last 24 hr 06/25/23 06:30 WBC 8.20 RBC 4.82 Hgb 13.4 L Hct 42.4 MCV 88 MCH 28 MCHC 32 RDW Coeff of [place] 14.1 Plt Count 158 Neut % (Auto) 73.7 H Lymph % (Auto) 11.2 L [place] % (Auto) 14.3 H Eos % (Auto) 0.1 Baso % (Auto) 0.6 Neut # (Auto) 6.00 Lymph # (Auto) 0.90 [place] # (Auto) 1.20 H Eos # (Auto) 0.01 Baso # (Auto) 0.05 Abs Immat Gran (auto) 0.01 Imm/Tot Granulo (auto) 0.1 Sodium 139 Potassium 3.5 L Chloride 105 Carbon Dioxide 26 BUN 15 Creatinine 0.8 Estimated Creat Clear 72.21 Estimated GFR 93 Glucose 97 Calcium 8.4 Total Bilirubin 1.5 Direct Bilirubin 0.1 AST 26 ALT 18 Alkaline Phosphatase 64 Total Protein 6.8 Albumin 3.5
[2023-06-25] MEDS: PANTOPRAZOLE SODIUM 40 MG INJ IVP (18:03)
[2023-06-25 19:10] VITALS: BP 119/72; PULSE 73; RESP 16; TEMP 36.9; O2SAT 94
[2023-06-25] MEDS: ENOXAPARIN 40 MG/0.4 ML INJ SUBCUT (21:10)
--- NOTE | 2023-06-25 22:34 | PC.NURSE ---
Shift [id number]- Patient denies nausea this afternoon and rates pain 1-2/10, though is not interested in oral intake. He is up and walking the halls independently. This evening, he reports some mild nausea with increased hiccupping/ burping. He denies increase in pain. Continues to have disinterest in oral intake. Bowel sounds are hypoactive.
[2023-06-25 23:30] VITALS: BP 117/69; PULSE 74; RESP 16; TEMP 36.5; O2SAT 92; O2SAT 95
[2023-06-26] MEDS: 0.9 % SODIUM CHLORIDE 1000 ml 1,000 ML 125 ML IV ×3 (03:28→18:05)
[2023-06-26 03:35] VITALS: BP 112/70; PULSE 70; RESP 16; TEMP 37; O2SAT 94
--- NOTE | 2023-06-26 06:29 | PC.NURSE ---
Pt alert and oriented x3. Afebrile. Pt denies pain, chest pain, and N/V. When news writer's shift started 2300 INDIGO Blake attempted to inserted NG tube in pt?s left nare but was unable to advance NG tube, right nare was attempted and was successful. Pt?s NG tube is at 63 cm, doing intermittent suction, is patent, draining and was producing green output since 0500 is brown. Pt?s NG output after insertion was 850 ml within 20?mins.?NG output after the initial 850 ml was 950 ml. Pt is up SBA and tolerating an NPO diet with sips and chips. ?
[2023-06-26 06:43] LABS: Basophils Absolute Auto 0.04 K/uL (0.00-0.30); Basophils Percent Auto 0.8 % (0.0-3.0); Eosinophils Absolute Auto 0.04 K/uL (0.00-0.50); Eosinophils Percent Auto 0.8 % (0.0-7.0); Hematocrit 39.3 % (37.0-53.0); Hemoglobin* 12.8 gm/dL (13.5-17.5); Lymphocytes Percent Auto 18.8 % (20-44); Mean Corpuscular HGB Conc 33 gm/dL (32-36); Mean Corpuscular Hemoglobin 29 pg (26-34); Mean Corpuscular Volume 88 fL (80-100); Monocytes Percent Auto 19.2 % (0.0-11.0); Neutrophils Absolute Auto 3.12 K/uL (1.7-7.0); Neutrophils Percent Auto 60.4 % (42.0-72.0); Platelet Count* 144 K/uL (140-440); Red Blood Count 4.47 m/uL (4.30-5.90); White Blood Count* 5.16 K/uL (4.50-11.00)
[2023-06-26 06:48] LABS: Slide Review Reflex No
[2023-06-26 06:58] LABS: Albumin* 3.2 g/dL (3.3-5.0); Chloride* 106 mmol/L (96-114); Sodium* 139 mmol/L (135-149)
[2023-06-26 06:59] LABS: Potassium* 3.2 mmol/L (3.6-5.1)
[2023-06-26 07:00] VITALS: BP 107/67; PULSE 68; RESP 18; TEMP 37; O2SAT 94
[2023-06-26 07:00] LABS: Creatinine* 0.9 mg/dL (0.5-1.5); Est. Creatinine Clearance* 72.21; Estimated Glomerular Filt Rate 90 ml/min
[2023-06-26 07:01] LABS: Alanine Aminotransferase* 17 U/L (4-50); Alkaline Phosphatase* 58 U/L (40-150); Aspartate Amino Transferase* 24 U/L (12-35); Bilirubin Total* 1.2 mg/dL (0.1-1.5); Blood Urea Nitrogen* 14 mg/dL (7-30); Carbon Dioxide* 25 mmol/L (20-32); Glucose* 93 mg/dL (60-115); Total Protein* 6.3 g/dL (6.0-8.3)
[2023-06-26 07:02] LABS: Calcium* 8.1 mg/dL (8.4-10.6)
--- NOTE | 2023-06-26 10:19 | P.GSCN_ITS ---
History of Present Illness Consult details Date Seen: 06/26/23 Consult date: 06/26/23 Narrative: 73-year-old male was admitted to the hospital with abdominal pain and I was asked by Dr. Veras to see him in consultation. Patient developed lower abdominal pain and bloating over the weekend. On Saturday he presented to the emergency room because his pain was significantly worse. He also had hiccups. He had multiple episodes of vomiting and could not get comfortable to sleep at night. When he was admitted to the hospital, nasogastric tube was placed and his pain was getting better. His NG tube was removed yesterday. Patient continued ambulating. He tried some diet yesterday but had return of his pain to the milder extent. He also had hiccups. He had a lot of nausea yesterday and requested NG tube to be placed back in. Since his NG tube was placed, his pain is improved and he denies pain today. He denies nausea or vomiting. He thinks he passed gas 4 times. However, he still has hiccups. Upon admission he was found to have normal WBC and his WBC remained normal. He is hypokalemic at 3.2. An abdominal CT was obtained on 06/23/2023 that showed dilated loops of bowel with a transition point in the right lower quadrant. Review of Systems Narrative: General: no fevers HENT: no problems swallowing CV: no shortness of breath Resp: no cough GI: See above : Has a history of recurrent prostatitis Skin: no new rashes Musculoskeletal: no back pain Neuro: no muscle weakness [facility] Medical History Closed nondisplaced fracture of phalanx of right middle finger ?S62.602A - Fracture of unspecified phalanx of right middle finger, initial encounter for closed fracture (ICD-10) Bilateral sensorineural hearing loss ?H90.3 - Sensorineural hearing loss, bilateral (ICD-10) BPH with urinary obstruction ?N40.1 - Benign prostatic hyperplasia with lower urinary tract symptoms (ICD- 10) ?N13.8 - Other obstructive and reflux uropathy (ICD-10) Prediabetes ?R73.03 - Prediabetes (ICD-10) Benign neoplasm of colon ?D12.6 - Benign neoplasm of colon, unspecified (ICD-10) Chronic prostatitis ?N41.1 - Chronic prostatitis (ICD-10) Mixed hyperlipidemia ?E78.2 - Mixed hyperlipidemia (ICD-10) Surgical History (Updated 06/26/23 @ 10:26 by Kevin Rutledge MD) H/O vasectomy ?Z98.52 - Vasectomy status (ICD-10) Hx of tonsillectomy ?Z90.89 - Acquired absence of other organs (ICD-10) History of inguinal herniorrhaphy ?Z98.890 - Other specified postprocedural states (ICD-10) ?Z87.19 - Personal history of other diseases of the digestive system (ICD-10) H/O hernia repair ?Z98.890 - Other specified postprocedural states (ICD-10) ?Z87.19 - Personal history of other diseases of the digestive system (ICD-10) Hx of colonoscopy ?Z98.890 - Other specified postprocedural states (ICD-10) H/O cataract extraction ?Z98.49 - Cataract extraction status, unspecified eye (ICD-10) Hx of appendectomy ?Z90.49 - Acquired absence of other specified parts of digestive tract (ICD- 10) Social History Narrative: Lives independently with , Rebecca. Denies tobacco use having quit 15-20 years ago and smoked 20 pack years. Drinks 5 beers per week, usually no more than 1 at a sitting. Denies recreational drug use. What is your current living situation?: I presently have a place to live Problems where you live: no known problems Problems where you live details: none In the past 12 months, utilities in danger of being shut off: no In the past 12 mos, have been you worried that your food would run out before you had money to buy more?: never true In the past 12 mos, the food you bought just didn't last and you didn't have money to buy more?: never true Smoking Status: Former smoker What tobacco products do you use: cigarettes Years smoked: 18 Smoking quit date/years: >15 years ago Do you use any of these nicotine containing products: None Second hand tobacco smoke exposure: No How often do you have a drink containing alcohol: 2-3 times a week Alcohol type: beer How many standard drinks containing alcohol do you have on a typical day: 1 or 2 How often do you have six or more drinks on one occasion: Never AUDIT-C Alcohol total score: 3 Non-prescribed substance use: denies use Caffeine: No How often does anyone, including family, friends and others, physically hurt you : never How often does anyone, including family, friends and others, insult or talk down to you: never How often does anyone, including family, friends and others, threaten you with harm: never How often does anyone, including family, friends and others, scream or curse at you: never service: No Meds Home Medications and Allergies Home Medications Medication Instructions Recorded Confirmed Type ciprofloxacin HCl 250 mg tablet 250 mg PO DIRECTED PRN 06/23/23 06/23/23 History tamsulosin 0.4 mg capsule 0.4 mg PO DAILY@12 06/23/23 06/23/23 History Allergies Allergy/AdvReac Type Severity Reaction Status Date / Time No Known Drug Allergies Allergy Verified 06/23/23 09:58 Exam Narrative: Exam Narrative: General appearance: Alert, cooperative, and in no distress Pulmonary: Chest symmetric, lungs clear bilaterally Cardiovascular Heart: Regular rate and rhythm, S1, S2, no murmurs/rubs/gallops Gastrointestinal Abdominal: soft, not distended, not tender to percussion, minimal discomfort to palpation in epigastrium, no peritoneal signs. Patient is hiccuping during my exam. Skin: Normal skin color, texture, and turgor. No rashes or lesions. Psychiatric: Alert, cooperative, normal affect. Const: Vital Signs, click to edit/add: Vital Signs - 24 hr 06/25/23 11:00 06/25/23 15:20 06/25/23 15:20 Temperature 96.8 F L 98.6 F Pulse Rate [Apical ] Pulse Rate [Pulse Oximeter] 87 72 Respiratory Rate 18 18 Blood Pressure [Ri ght Arm] 102/75 122/73 Pulse Oximetry 96 97 97 Oxygen Delivery Me thod Room Air Room Air 06/25/23 19:10 06/25/23 23:30 06/25/23 23:30 Temperature 98.4 F Pulse Rate [Apical ] 74 Pulse Rate [Pulse Oximeter] 73 74 Respiratory Rate 16 16 Blood Pressure [Ri ght Arm] 119/72 Pulse Oximetry 94 92 Oxygen Delivery Me thod 06/25/23 23:30 06/26/23 03:35 06/26/23 07:00 Temperature 97.7 F 98.6 F Pulse Rate [Apical ] Pulse Rate [Pulse Oximeter] 74 70 Respiratory Rate 16 16 Blood Pressure [Ri ght Arm] 117/69 112/70 Pulse Oximetry 95 94 94 Oxygen Delivery Me thod Room Air Room Air 06/26/23 07:00 Temperature 98.6 F Pulse Rate [Apical ] Pulse Rate [Pulse Oximeter] 68 Respiratory Rate 18 Blood Pressure [Ri ght Arm] 107/67 Pulse Oximetry 94 Oxygen Delivery Me thod Room Air Results Labs Labs: Abnormal lab results 06/26/23 Range/Units 06:24 Hgb 12.8 L (13.5-17.5) gm/dL Lymph % (Auto) 18.8 L (20-44) % [place] % (Auto) 19.2 H (0.0-11.0) % [place] # (Auto) 1.00 H (0.00-0.90) K/UL Potassium 3.2 L (3.6-5.1) mmol/L Calcium 8.1 L (8.4-10.6) mg/dL Albumin 3.2 L (3.3-5.0) g/dL Diabetes panel 06/26/23 Range/Units 06:24 Sodium 139 (135-149) mmol/L Potassium 3.2 L (3.6-5.1) mmol/L Chloride 106 (96-114) mmol/L Carbon Dioxide 25 (20-32) mmol/L BUN 14 (7-30) mg/dL Creatinine 0.9 (0.5-1.5) mg/dL Glucose 93 (60-115) mg/dL Calcium 8.1 L (8.4-10.6) mg/dL AST 24 (12-35) U/L ALT 17 (4-50) U/L Alkaline Phosphatase 58 (40-150) U/L Total Protein 6.3 (6.0-8.3) g/dL Albumin 3.2 L (3.3-5.0) g/dL Calcium panel 06/26/23 Range/Units 06:24 Calcium 8.1 L (8.4-10.6) mg/dL Albumin 3.2 L (3.3-5.0) g/dL Pituitary panel 06/26/23 Range/Units 06:24 Sodium 139 (135-149) mmol/L Potassium 3.2 L (3.6-5.1) mmol/L Chloride 106 (96-114) mmol/L Carbon Dioxide 25 (20-32) mmol/L BUN 14 (7-30) mg/dL Creatinine 0.9 (0.5-1.5) mg/dL Glucose 93 (60-115) mg/dL Calcium 8.1 L (8.4-10.6) mg/dL Adrenal panel 06/26/23 Range/Units 06:24 Sodium 139 (135-149) mmol/L Potassium 3.2 L (3.6-5.1) mmol/L Chloride 106 (96-114) mmol/L Carbon Dioxide 25 (20-32) mmol/L BUN 14 (7-30) mg/dL Creatinine 0.9 (0.5-1.5) mg/dL Glucose 93 (60-115) mg/dL Calcium 8.1 L (8.4-10.6) mg/dL Total Bilirubin 1.2 (0.1-1.5) mg/dL AST 24 (12-35) U/L ALT 17 (4-50) U/L Alkaline Phosphatase 58 (40-150) U/L Total Protein 6.3 (6.0-8.3) g/dL Albumin 3.2 L (3.3-5.0) g/dL All other labs normal. Assessment and Plan Assessment and plan (1) Small bowel obstruction: Problem comment: - NG placed 06/23, still has fair amount of output; will remove 06/25 and slowly advance diet - passing flatus, reassuring - last colonoscopy in 2019 with tubular adenoma noted - History of bilateral hernia repairs Status: Acute Plan 73-year-old male admitted with small-bowel obstruction. I discussed with the patient my clinical findings. His abdominal exam is benign today. Even though he had a few episodes of passing gas, will continue with NG tube to suction until tomorrow. Patient continues to have hiccups. Patient was encouraged to ambulate. Will continue to follow this patient.
[2023-06-26 11:00] VITALS: BP 118/81; PULSE 69; RESP 16; TEMP 36.8; O2SAT 95
--- NOTE | 2023-06-26 12:11 | P.IMPN_ITS ---
Progress Note: A&P Assessment and plan (1) Small bowel obstruction: Problem details: - NG placed 06/23, removed 06/25 given flatus and decreased outpatient; unfortunately, had to be replaced on 06/25 in the evening 2/2 return of nausea - last colonoscopy in 2019 with tubular adenoma noted - History of bilateral hernia repairs - General Surgery consulted 06/26, appreciate their input Status: Acute (2) Hypokalemia: Problem details: - replace and follow Status: Acute (3) Elevated LFTs: Problem details: - elevated bilirubin and AST on admission, no liver disease history or alcohol overuse - resolved hospital day #3 Status: Acute Plan - continue NG - Lovenox for ppx Subjective Date Seen: 06/26/23 Interval history: Wade had his NG tube removed yesterday afternoon; unfortunately, he felt quite nauseated again and NG needed to be replaced. Dr. Rutledge from General Surgery has been consulted. He has no abdominal pain, still passing flatus. No other concerns for hospitalist team. Exam Narrative: Exam Narrative: GEN: Alert and nontoxic, laying comfortably in bed HEENT: EOMIs bilaterally, no scleral icterus R: Breathing comfortably without tachypnea Ab: soft, tolerates palpation, hypoactive bowel sounds noted throughout Ext: wwp, no concerning edema Skin: No concerning skin lesions or rashes on exposed skin Neuro: Nonfocal Psych: Appropriate Const: Vital Signs, click to edit/add: Vital Signs - 24 hr 06/25/23 15:20 06/25/23 15:20 06/25/23 19:10 Temperature 98.6 F 98.4 F Pulse Rate [Apical ] Pulse Rate [Pulse Oximeter] 72 73 Respiratory Rate 18 16 Blood Pressure [Ri ght Arm] 122/73 119/72 Pulse Oximetry 97 97 94 Oxygen Delivery Me thod Room Air 06/25/23 23:30 06/25/23 23:30 06/25/23 23:30 Temperature 97.7 F Pulse Rate [Apical ] 74 Pulse Rate [Pulse Oximeter] 74 74 Respiratory Rate 16 16 Blood Pressure [Ri ght Arm] 117/69 Pulse Oximetry 92 95 Oxygen Delivery Me thod Room Air 06/26/23 03:35 06/26/23 07:00 06/26/23 07:00 Temperature 98.6 F 98.6 F Pulse Rate [Apical ] Pulse Rate [Pulse Oximeter] 70 68 Respiratory Rate 16 18 Blood Pressure [Ri ght Arm] 112/70 107/67 Pulse Oximetry 94 94 94 Oxygen Delivery Me thod Room Air Room Air 06/26/23 11:00 Temperature 98.2 F Pulse Rate [Apical ] Pulse Rate [Pulse Oximeter] 69 Respiratory Rate 16 Blood Pressure [Ri ght Arm] 118/81 Pulse Oximetry 95 Oxygen Delivery Me thod Room Air Labs Labs: Laboratory Results - last 24 hr 06/26/23 06:24 WBC 5.16 RBC 4.47 Hgb 12.8 L Hct 39.3 MCV 88 MCH 29 MCHC 33 RDW Coeff of [place] 14.0 Plt Count 144 Neut % (Auto) 60.4 Lymph % (Auto) 18.8 L [place] % (Auto) 19.2 H Eos % (Auto) 0.8 Baso % (Auto) 0.8 Neut # (Auto) 3.12 Lymph # (Auto) 1.00 [place] # (Auto) 1.00 H Eos # (Auto) 0.04 Baso # (Auto) 0.04 Abs Immat Gran (auto) 0.00 Imm/Tot Granulo (auto) 0.0 Sodium 139 Potassium 3.2 L Chloride 106 Carbon Dioxide 25 BUN 14 Creatinine 0.9 Estimated Creat Clear 72.21 Estimated GFR 90 Glucose 93 Calcium 8.1 L Total Bilirubin 1.2 AST 24 ALT 17 Alkaline Phosphatase 58 Total Protein 6.3 Albumin 3.2 L
[2023-06-26] MEDS: TAMSULOSIN HCL 0.4 MG CAPSULE PO (12:41)
[2023-06-26] MEDS: POTASSIUM CHLORIDE 10 MEQ/100 ML PIGGYBACK 100 MEQ IVPB (12:41)
[2023-06-26] MEDS: POTASSIUM CHLORIDE 10 MEQ, LIDOCAINE 1 % 1 ML in 0.9 % SODIUM CHLORIDE 100 ml 100 ML 106 MEQ IVPB ×2 (13:45→14:46)
[2023-06-26 14:54] VITALS: BP 134/78; PULSE 78; RESP 18; TEMP 36.8; O2SAT 95
--- NOTE | 2023-06-26 17:21 | PC.NURSE ---
Patient has been up ambulating independently in hallways several times. Nasogastric tube patent and draining brown fluid. BS active. Patient reports some gas with ambulation. Independent with urinating in the toilet. Patient reported burning with IV administration of potassium. Interventions of increasing primary fluids and applying warm pack not effective. Pharmacy added Lidocaine to two remaining bags of potassium which was effective. Patient reported having pain on right side of throat at times when swallowing. Pain rated 2/10. Patient describes pain as friction, irritation. Patient reports having some relief when ambulating and with cold from ice chips. Patient tolerating sips and ice chips.
[2023-06-26 19:33] VITALS: BP 119/64; PULSE 77; RESP 16; TEMP 36.9; O2SAT 95
[2023-06-26] MEDS: ENOXAPARIN 40 MG/0.4 ML INJ SUBCUT (20:54)
--- NOTE | 2023-06-26 22:09 | PC.NURSE ---
Shift [id number]- Patient is up and walks the halls independently this evening. Bowel sounds are increased from yesterday afternoon. He states he is passing flatus. NG to LIS with brown output. He denies pain or nausea. He states a little throat pain, though declines numbing spray. Taking ice chips for comfort.
[2023-06-27 00:10] VITALS: BP 122/72; PULSE 70; RESP 16; TEMP 36.4; O2SAT 96
[2023-06-27] MEDS: 0.9 % SODIUM CHLORIDE 1000 ml 1,000 ML 125 ML IV ×3 (02:00→19:28)
[2023-06-27 02:15] VITALS: BP 110/67; PULSE 67; RESP 14; TEMP 36.6; O2SAT 95
--- NOTE | 2023-06-27 06:46 | PC.NURSE ---
Pt alert and oriented x3. Afebrile. Pt denies pain, chest pain, and N/V. Pt?s NG tube is at 63 cm in right nare, doing low intermittent suction, is patent, draining and producing brown output most of night. Tenter noted some red tinge in tube around 0620, performed a Gastroccult which was positive, securities underwriter updating on coming nurse and MD at 0700. Pt?s NG output was 600?ml overnight [id number]. Pt is up ad louann and tolerating an NPO diet with sips and chips.??
[2023-06-27 06:56] LABS: Chloride* 106 mmol/L (96-114)
[2023-06-27 06:57] LABS: Potassium* 3.3 mmol/L (3.6-5.1); Sodium* 141 mmol/L (135-149)
[2023-06-27 06:59] LABS: Creatinine* 0.8 mg/dL (0.5-1.5); Est. Creatinine Clearance* 72.21; Estimated Glomerular Filt Rate 93 ml/min
[2023-06-27 07:00] LABS: Blood Urea Nitrogen* 13 mg/dL (7-30); Carbon Dioxide* 24 mmol/L (20-32)
[2023-06-27 07:01] LABS: Calcium* 8.1 mg/dL (8.4-10.6); Glucose* 81 mg/dL (60-115)
[2023-06-27 07:31] LABS: Magnesium* 1.9 mg/dL (1.5-2.6)
[2023-06-27 07:39] VITALS: BP 119/71; PULSE 64; RESP 18; TEMP 36.9; O2SAT 97
[2023-06-27 07:40] VITALS: O2SAT 97
[2023-06-27] MEDS: PANTOPRAZOLE SODIUM 40 MG INJ IVP (08:17)
[2023-06-27] MEDS: POTASSIUM CHLORIDE 10 MEQ/100 ML PIGGYBACK 100 MEQ IVPB ×4 (08:17→12:58)
--- NOTE | 2023-06-27 08:38 | PM.GSPN ---
Subjective Subjective Date Seen: 06/27/23 Interval history: Patient is doing better. He denies abdominal pain, nausea or vomiting. He ambulated multiple times. His NG tube is in place and draining dark bilious fluid. He occasionally still has hiccups. Patient is passing gas. Exam Narrative: Exam Narrative: Abdomen is soft, not distended, not tender to palpation. There is mild sensitivity to palpation in epigastrium but that is improved compared to yesterday. Const: Vital Signs, click to edit/add: Vital Signs - 24 hr 06/26/23 11:00 06/26/23 14:54 06/26/23 14:54 Temperature 98.2 F 98.3 F Pulse Rate [Apical ] Pulse Rate [Pulse Oximeter] 69 78 Respiratory Rate 16 18 Blood Pressure [Ri ght Arm] 118/81 134/78 Pulse Oximetry 95 95 95 Oxygen Delivery Me thod Room Air Room Air 06/26/23 19:33 06/27/23 00:10 06/27/23 00:10 Temperature 98.5 F Pulse Rate [Apical ] 77 Pulse Rate [Pulse Oximeter] 70 Respiratory Rate 16 16 Blood Pressure [Ri ght Arm] 119/64 Pulse Oximetry 95 96 Oxygen Delivery Me thod Room Air 06/27/23 00:10 06/27/23 02:15 06/27/23 07:39 Temperature 97.6 F 97.8 F 98.4 F Pulse Rate [Apical ] 64 Pulse Rate [Pulse Oximeter] 70 67 Respiratory Rate 16 14 18 Blood Pressure [Ri ght Arm] 122/72 110/67 119/71 Pulse Oximetry 96 95 97 Oxygen Delivery Me thod Room Air Room Air Room Air 06/27/23 07:40 Temperature Pulse Rate [Apical ] Pulse Rate [Pulse Oximeter] Respiratory Rate Blood Pressure [Ri ght Arm] Pulse Oximetry 97 Oxygen Delivery Me thod Progress Note: A&P Assessment and plan (1) Small bowel obstruction: Problem details: - NG placed 06/23, removed 06/25 given flatus and decreased outpatient; unfortunately, had to be replaced on 06/25 in the evening 2/2 return of nausea - last colonoscopy in 2019 with tubular adenoma noted - History of bilateral hernia repairs - General Surgery consulted 06/26, appreciate their input Status: Acute Plan 73-year-old male admitted with small-bowel obstruction. Patient is improving with conservative treatment. I recommended to clamp his NG and keep it in place for few hours. Patient can have some clear liquids today with NG in place to see how he does with those. After lunch time if he is doing well, it would be reasonable to remove his NG tube. I would continue him on clear liquids until tomorrow.
[2023-06-27 10:29] VITALS: BMI 23.7
[2023-06-27] MEDS: TAMSULOSIN HCL 0.4 MG CAPSULE PO (11:31)
--- NOTE | 2023-06-27 14:46 | PM.IMPN1 ---
Progress Note: A&P Assessment and plan (1) Small bowel obstruction: Problem details: - NG placed 06/23, removed 06/25 given flatus and decreased outpatient; unfortunately, had to be replaced on 06/25 in the evening 2/2 return of nausea - last colonoscopy in 2019 with tubular adenoma noted - History of bilateral hernia repairs - General Surgery consulted 06/26, appreciate their input Status: Acute (2) Hypokalemia: Problem details: - replace and follow Status: Acute Plan - NG clamped this morning, will advance diet and if all goes well, consider removal of NG later today - Lovenox and PPI for ppx Subjective Date Seen: 06/27/23 Interval history: Wade had NG clamped this morning, doing well. + gastroccult on NG output, on PPI with reassuring Hgb and BUN. We are replacing his K, Magnesium is normal. Passing flatus. No concerns for hospitalist. Exam Narrative: Exam Narrative: GEN: Alert and oriented, nontoxic HEENT: EOMIs bilaterally, no scleral icterus CV: RRR R: Breathing comfortably Ab: soft, no ttp, BS present by hypoactive Ext: wwp, no concerning edema Skin: No concerning skin lesions or rashes on exposed skin Neuro: Nonfocal Psych: Appropriate Const: Vital Signs, click to edit/add: Vital Signs - 24 hr 06/26/23 14:54 06/26/23 14:54 06/26/23 19:33 Temperature 98.3 F 98.5 F Pulse Rate [Apical ] 77 Pulse Rate [Pulse Oximeter] 78 Respiratory Rate 18 16 Blood Pressure [Ri ght Arm] 134/78 119/64 Pulse Oximetry 95 95 95 Oxygen Delivery Me thod Room Air Room Air 06/27/23 00:10 06/27/23 00:10 06/27/23 00:10 Temperature 97.6 F Pulse Rate [Apical ] Pulse Rate [Pulse Oximeter] 70 70 Respiratory Rate 16 16 Blood Pressure [Ri ght Arm] 122/72 Pulse Oximetry 96 96 Oxygen Delivery Me thod Room Air 06/27/23 02:15 06/27/23 07:39 06/27/23 07:40 Temperature 97.8 F 98.4 F Pulse Rate [Apical ] 64 Pulse Rate [Pulse Oximeter] 67 Respiratory Rate 14 18 Blood Pressure [Ri ght Arm] 110/67 119/71 Pulse Oximetry 95 97 97 Oxygen Delivery Me thod Room Air Room Air Labs Labs: Laboratory Results - last 24 hr 06/27/23 05:49 Sodium 141 Potassium 3.3 L Chloride 106 Carbon Dioxide 24 BUN 13 Creatinine 0.8 Estimated Creat Clear 72.21 Estimated GFR 93 Glucose 81 Calcium 8.1 L Magnesium 1.9 Lab Acknowledgement Test Added
[2023-06-27 15:00] VITALS: BP 109/68; PULSE 68; RESP 18; TEMP 36.6; O2SAT 96
[2023-06-27 19:39] VITALS: BP 109/61; PULSE 66; PULSE 95; RESP 16; TEMP 36.4
--- NOTE | 2023-06-27 20:11 | PC.NURSE ---
shift note: pt vss stable. pt up in [place] indept multiple times. abd flat with BS hypoacitive. pt states he's passing flatus actively. No BM reported. Pt NG clamped per Dr. Rutledge this a.m till 1300. Pt had 50 cc brown returns initially when NG placed back to suction. Pt total NG output 150cc brownish returns. Pt tolerated 1 cup ice chips, sips of water and 1 raspberry ice when NG clamped. NG in place @ 63 and nasal anchor replaced. IV patent.
[2023-06-27] MEDS: ENOXAPARIN 40 MG/0.4 ML INJ SUBCUT (20:45)
[2023-06-27] MEDS: MELATONIN 3 MG TABLET PO (20:45)
[2023-06-27] MEDS: SODIUM CHLORIDE 0.9 % (FLUSH) 10 ML SYRINGE 5 ML IVF (20:46)
[2023-06-28] VITALS (8 sets, daily range): BP systolic 94–131; BP diastolic 69–77; PULSE 61–107; RESP 16–20; TEMP 36.4–37.1; O2SAT 94–97
[2023-06-28] MEDS: 0.9 % SODIUM CHLORIDE 1000 ml 1,000 ML 125 ML IV (03:23)
[2023-06-28 06:29] LABS: Basophils Absolute Auto 0.06 K/uL (0.00-0.30); Eosinophils Absolute Auto 0.23 K/uL (0.00-0.50); Eosinophils Percent Auto 3.7 % (0.0-7.0); Hematocrit 36.9 % (37.0-53.0); Hemoglobin* 11.8 gm/dL (13.5-17.5); Immature Granulocytes Abs Auto 0.01 K/uL (0.00-0.30); Immature Granulocytes Pct Auto 0.2 %; Lymphocytes Absolute Auto 1.28 K/uL (0.90-2.90); Lymphocytes Percent Auto 20.3 % (20-44); Mean Corpuscular HGB Conc 32 gm/dL (32-36); Mean Corpuscular Hemoglobin 28 pg (26-34); Mean Corpuscular Volume 88 fL (80-100); Monocytes Percent Auto 11.8 % (0.0-11.0); Neutrophils Absolute Auto 3.97 K/uL (1.7-7.0); Platelet Count* 154 K/uL (140-440); RDW Coefficient of Variation % 13.7 % (11.5-15.5); Red Blood Count 4.18 m/uL (4.30-5.90); White Blood Count* 6.29 K/uL (4.50-11.00)
[2023-06-28 06:32] LABS: Slide Review Reflex No
[2023-06-28 06:45] LABS: Chloride* 109 mmol/L (96-114)
[2023-06-28 06:46] LABS: Potassium* 3.5 mmol/L (3.6-5.1); Sodium* 141 mmol/L (135-149)
[2023-06-28 06:48] LABS: Carbon Dioxide* 24 mmol/L (20-32); Creatinine* 0.7 mg/dL (0.5-1.5); Est. Creatinine Clearance* 72.21; Estimated Glomerular Filt Rate 97 ml/min
[2023-06-28 06:49] LABS: Blood Urea Nitrogen* 9 mg/dL (7-30); Glucose* 80 mg/dL (60-115)
--- NOTE | 2023-06-28 07:08 | PC.NURSE ---
END OF SHIFT NOTE: PT PLEASANT AND COOPERATIVE. PT DENIES?CP, SOB, N/V. AMBULATES INDEPENDENTLY. VSS ON RA; AFEBRILE. NG PLACED IN LEFT NARE @63CM TO LIS WITH BROWN OUTPUT 200ML THIS SHIFT. PT REPORTS PASSING FLATUS. PT HAS FX TO R. MIDDLE FINGER FROM SB INJURY, THAT IS SPLINTED AND WRAPPED WITH COBAN. CALL LIGHT WITHIN PT?S REACH.?
[2023-06-28] MEDS: POTASSIUM CHLORIDE 10 MEQ/100 ML PIGGYBACK 100 MEQ IVPB (08:30)
[2023-06-28] MEDS: PANTOPRAZOLE SODIUM 40 MG INJ IVP (08:30)
[2023-06-28] MEDS: POTASSIUM BICARB 25 MEQ EFFERVESCENT TAB PO (09:37)
--- NOTE | 2023-06-28 10:03 | PM.IMPN1 ---
Progress Note: A&P Assessment and plan (1) Small bowel obstruction: Problem details: - NG placed 06/23, removed 06/25 given flatus and decreased outpatient; unfortunately, had to be replaced on 06/25 in the evening 2/2 return of nausea - last colonoscopy in 2019 with tubular adenoma noted - History of bilateral hernia repairs - General Surgery consulted 06/26, appreciate their input NG removed today. Clear liquid diet and advance as tolerated. Status: Acute (2) Hypokalemia: Problem details: Due to NG suctioning. Replace and follow. Status: Acute Plan Monitor return to normal diet. If doing well probable discharge tomorrow. Time Spent With Patient Total time spent: Total time spent today is 40 minutes, 30 minutes in coordination care and discussing with patient other providers ongoing evaluation management small bowel obstruction Subjective Date Seen: 06/28/23 Interval history: 73-year-old male admitted to the hospital with small-bowel obstruction. Presumed secondary to 2 remote prior hernia surgeries. No previous SBO. Patient had NG tube clamped yesterday and tolerated well. Was back on NG suctioning overnight. NG tube removed today. He had a large formed stool this morning. He reports no abdominal pain in his anxious to eat and drink. Exam Narrative: Exam Narrative: He is alert and appears in no distress. Speech is normal. Respirations are unlabored. Abdomen: Bowel sounds active. Abdomen is soft without tenderness or mass. Extremities without edema. Const: Vital Signs, click to edit/add: Vital Signs - 24 hr 06/27/23 15:00 06/27/23 15:00 06/27/23 19:39 Temperature 97.8 F 97.5 F L Pulse Rate [Apical ] 68 66 Pulse Rate [Pulse Oximeter] 95 Respiratory Rate 18 16 Blood Pressure [Ri ght Arm] 109/68 109/61 Pulse Oximetry 96 96 Oxygen Delivery Me thod Room Air 06/28/23 00:05 06/28/23 00:05 06/28/23 00:05 Temperature 98.2 F Pulse Rate [Apical ] Pulse Rate [Pulse Oximeter] 61 61 Respiratory Rate 20 20 Blood Pressure [Ri ght Arm] 115/69 Pulse Oximetry 94 94 Oxygen Delivery Me thod Room Air 06/28/23 03:18 06/28/23 07:26 06/28/23 07:26 Temperature 97.9 F 98.4 F Pulse Rate [Apical ] Pulse Rate [Pulse Oximeter] 74 66 Respiratory Rate 16 18 Blood Pressure [Ri ght Arm] 106/73 124/71 Pulse Oximetry 95 97 97 Oxygen Delivery Me thod Room Air Room Air Documenting provider has reviewed patient's vital signs: yes Labs Labs: Laboratory Results - last 24 hr 06/28/23 05:44 WBC 6.29 RBC 4.18 L Hgb 11.8 L Hct 36.9 L MCV 88 MCH 28 MCHC 32 RDW Coeff of [place] 13.7 Plt Count 154 Neut % (Auto) 63.0 Lymph % (Auto) 20.3 [place] % (Auto) 11.8 H Eos % (Auto) 3.7 Baso % (Auto) 1.0 Neut # (Auto) 3.97 Lymph # (Auto) 1.28 [place] # (Auto) 0.70 Eos # (Auto) 0.23 Baso # (Auto) 0.06 Abs Immat Gran (auto) 0.01 Imm/Tot Granulo (auto) 0.2 Sodium 141 Potassium 3.5 L Chloride 109 Carbon Dioxide 24 BUN 9 Creatinine 0.7 Estimated Creat Clear 72.21 Estimated GFR 97 Glucose 80 Calcium 8.0 L
--- NOTE | 2023-06-28 11:44 | PM.GSPN ---
Subjective Subjective Date Seen: 06/28/23 Interval history: Wade is doing well. He has been walking avidly. He has no pain. He had a bowel movement this morning which was normal. NG tube was then removed. He is tolerating clears without difficulty. Exam Narrative: Exam Narrative: General: No acute distress CV: Regular rate Respiratory: Breathing nonlabored on room air Abdomen: Soft, nontender. Nondistended. Const: Vital Signs, click to edit/add: Vital Signs - 24 hr 06/27/23 15:00 06/27/23 15:00 06/27/23 19:39 Temperature 97.8 F 97.5 F L Pulse Rate [Apical ] 68 66 Pulse Rate [Pulse Oximeter] 95 Respiratory Rate 18 16 Blood Pressure [Ri ght Arm] 109/68 109/61 Pulse Oximetry 96 96 Oxygen Delivery Me thod Room Air 06/28/23 00:05 06/28/23 00:05 06/28/23 00:05 Temperature 98.2 F Pulse Rate [Apical ] Pulse Rate [Pulse Oximeter] 61 61 Respiratory Rate 20 20 Blood Pressure [Ri ght Arm] 115/69 Pulse Oximetry 94 94 Oxygen Delivery Me thod Room Air 06/28/23 03:18 06/28/23 07:26 06/28/23 07:26 Temperature 97.9 F 98.4 F Pulse Rate [Apical ] Pulse Rate [Pulse Oximeter] 74 66 Respiratory Rate 16 18 Blood Pressure [Ri ght Arm] 106/73 124/71 Pulse Oximetry 95 97 97 Oxygen Delivery De thod Room Air Room Air 06/28/23 11:18 Temperature 97.5 F L Pulse Rate [Apical ] Pulse Rate [Pulse Oximeter] 68 Respiratory Rate 18 Blood Pressure [Ri ght Arm] 131/75 Pulse Oximetry 97 Oxygen Delivery Me thod Room Air Labs/Imaging Labs Labs: White blood cell count within normal limits. Progress Note: A&P Assessment and plan (1) Hypokalemia: Problem details: Due to NG suctioning. Replace and follow. Status: Acute (2) Small bowel obstruction: Problem details: - NG placed 06/23, removed 06/25 given flatus and decreased outpatient; unfortunately, had to be replaced on 06/25 in the evening 2/2 return of nausea - last colonoscopy in 2019 with tubular adenoma noted - History of bilateral hernia repairs - General Surgery consulted 06/26, appreciate their input NG removed today. Clear liquid diet and advance as tolerated. Status: Acute Plan The patient is a 73-year-old male with a small-bowel obstruction likely secondary to adhesions from prior appendectomy. Fortunately he has return of bowel function today. Agree with advancing diet to clears. As long as he tolerates this, we can continue to advance his diet as tolerated.
[2023-06-28] MEDS: TAMSULOSIN HCL 0.4 MG CAPSULE PO (12:34)
--- NOTE | 2023-06-28 14:27 | PC.NURSE ---
Pt alert and oriented. Pt had no complaints of pain. Pt independent. Pt had several walks in [place]. Dr. Love removed NG tube at 855am. Pt advanced to regular diet and tolerating well. ? ?
--- NOTE | 2023-06-28 16:30 | NUTR.NU ---
Met with patient this morning to review understanding of low fiber diet and diet advance. Pt asked appropriate questions. Has good understanding of appropriate food choices. Also, have noted that pt's diet has advanced and pt tolerating well.
--- NOTE | 2023-06-28 18:48 | PC.NURSE ---
End of shift: [id number] Patient tolerating a reg. diet since NG tube came out. Patient reported having two large BM during previous shift. Patient ambulating independently in room and hallway.
[2023-06-28] MEDS: SODIUM CHLORIDE 0.9 % (FLUSH) 10 ML SYRINGE 5 ML IVF (20:25)
[2023-06-28] MEDS: ENOXAPARIN 40 MG/0.4 ML INJ SUBCUT (20:25)
[2023-06-28] MEDS: MELATONIN 3 MG TABLET PO (22:16)
[2023-06-29 02:43] VITALS: BP 106/67; PULSE 78; RESP 18; TEMP 36.7; O2SAT 98
--- NOTE | 2023-06-29 06:25 | PC.NURSE ---
End of shift: Pt A&O. VSS w/ sats >90% on RA. Up at [place] and ambulated multiples times this shift. Pt denies pain. Bowel sounds active. Denies n/v. Tolerating regular diet.
[2023-06-29 07:15] VITALS: BP 119/87; PULSE 77; RESP 16; TEMP 36.2; O2SAT 98
--- NOTE | 2023-06-29 08:49 | PC.NURSE ---
Pt alert and oriented. Pt had no complaints of pain. Pt tolerating regular diet well. Pt up independently. Pt discharged home with .
--- NOTE | 2023-06-29 13:11 | P.DS_ITS ---
DS: Providers Provider Date Seen: 06/29/23 Date of admission: 06/23/23 19:25 Primary care physician: Jose F Walsh MD Admitting Clinician: Jael Winn MD Consults: 06/26/23 07:22 Consult to Physician [CONS] Routine Comment: Consulting Provider: Kevin Rutledge Has provider been notified: Yes Attending Physician on discharge: Onel Love MD Date of Discharge: 06/29/23 DS: Diagnosis Discharge Diagnosis (1) Small bowel obstruction: Status: Acute Problem details: - NG placed 06/23, removed 06/25 given flatus and decreased outpatient; unfortunately, had to be replaced on 06/25 in the evening 2/ return of nausea. NG removed again 06/28/2023. For last day as tolerated a regular diet. - last colonoscopy in 2019 with tubular adenoma noted - History of bilateral hernia repairs - General Surgery consulted 06/26, appreciate their input (2) Hypokalemia: Status: Acute Problem details: Due to NG suctioning. Replace and follow. (3) Elevated LFTs: Status: Acute Problem details: - elevated bilirubin and AST on admission, no liver disease history or alcohol overuse - resolved hospital day #3 DS: Summary Hospital Course Hospital Course: 73-year-old male admitted the hospital with small-bowel obstruction. This was suspected to be due to adhesions from remote history of hernia surgery x2. His symptoms improved early in his hospital stay and NG tube was removed. It then had to be replaced as he got distension again. NG tube was then removed again yesterday and he has advanced to clear liquids then full diet and has tolerated that for the last day. He has had a bowel movement and reports otherwise feelin g well. Status at Discharge Functional status at discharge: independent ambulation Overall status at discharge: patient is back to baseline Time Spent with Patient Time attestation: Total time spent providing and/or coordinating discharge services: Time spent: Less than 30 minutes Exam Narrative: Exam Narrative: He is alert and appears in no distress. ICM just after finishing his breakfast. Abdomen is soft without tenderness or mass. Bowel sounds are present. Const: Vital Signs, click to edit/add: Vital Signs - 24 hr 06/28/23 15:00 06/28/23 15:00 06/28/23 15:00 Temperature 97.5 F L Pulse Rate [Pulse Oximeter] 103 H 103 H Respiratory Rate 18 18 Blood Pressure [Ri ght Arm] 103/77 Pulse Oximetry 97 97 Oxygen Delivery Me thod Room Air 06/28/23 19:08 06/28/23 23:00 06/28/23 23:18 Temperature 98.4 F 98.7 F Pulse Rate [Pulse Oximeter] 107 H 92 Respiratory Rate 18 18 Blood Pressure [Ri ght Arm] 94/70 121/72 Pulse Oximetry 95 97 97 Oxygen Delivery Me thod Room Air Room Air 06/29/23 02:43 06/29/23 07:15 06/29/23 07:15 Temperature 98.0 F 97.2 F L Pulse Rate [Pulse Oximeter] 78 77 Respiratory Rate 18 16 Blood Pressure [Ri ght Arm] 106/67 119/87 Pulse Oximetry 98 98 98 Oxygen Delivery Me thod Room Air Room Air Documenting provider has reviewed patient's vital signs: yes DS: Data Imaging CT scan - abdomen: Radiologist's impression: INDICATION: Vomiting. TECHNIQUE: CT abdomen and pelvis acquired with 84 cc Isovue 370 IV contrast. COMPARISON: 07/16/2020. FINDINGS: Lower chest: Scattered atelectasis. Liver: Unremarkable. Normal in size and attenuation. No suspicious masses. Gallbladder and bile ducts: Unremarkable. No stones or inflammation. No biliary dilatation. Pancreas: Unremarkable. No mass or inflammation. Spleen: Unremarkable. Normal in size. No masses. Adrenal glands: Unremarkable. No nodules. Kidneys: Bilateral renal cysts. No suspicious masses, stones, or hydronephrosis. GI tract: Multiple dilated loops of small bowel with transition point in the right lower quadrant (series 2/image 108, series 4/image 56). Colonic diverticulosis without diverticulitis. Appendectomy. Vasculature: Abdominal aorta is normal in caliber. Mesenteric arteries are patent. Lymph nodes: No lymphadenopathy. Peritoneum/Abdominal Wall: Unremarkable. No sign of mass or infiltration. No free air or significant free fluid. Pelvis: Small volume free fluid in the pelvis. Prostatomegaly. Bones: Degenerative changes. IMPRESSION: Findings suggestive of small bowel obstruction with transition point in the right lower quadrant, possibly from adhesions. Small volume free fluid in the pelvis, likely reactive. Colonic diverticulosis without diverticulitis. Discharge Plan Discharge Disposition: Home, Self-Care Date of Admission: 06/23/23 19:25 Attending Provider on Discharge: Ramón Love Consulting Providers: Kevin Rutledge Primary Care Provider: Jose F Walsh Condition: Improved Anticipated Discharge Date/Time: 06/29/23 09:00 Discharge Medications: Continued tamsulosin 0.4 mg capsule 0.4 mg PO DAILY@12 ciprofloxacin HCl 250 mg tablet 250 mg PO DIRECTED PRN Rx Instructions: takes twice daily for 14 days at onset of prostate infections Discharge Orders: Discharge Order (Routine); Ordered 06/29/23 Ordered By: Ramón Love Patient Education: Ciprofloxacin (By mouth) (Cipro), Tamsulosin (By mouth), Bowel Obstruction (DC) Activity Level: No Restrictions Discharge Diet: Regular Follow Up Appointments: Jose F Walsh MD [Primary Care Provider] - Forms: [employer] Info Instructions
== END 2023-06-29 08:41 | disposition home or self-care (01) | DRG 389 ==
LOC: ED 13:37 → MEDSURG 18:49
PROVIDERS: Family Medicine; Admitting Provider Family Medicine; Emergency Provider Family Medicine; PCP Emergency Medicine Emergency Medical Services; Visit Provider Family Medicine
DX: K56.50 Intestinal adhesions [bands], unspecified as to partial versus complete obstruction (principal); N13.8 Other obstructive and reflux uropathy; E87.6 Hypokalemia; R79.89 Other specified abnormal findings of blood chemistry; N40.1 Benign prostatic hyperplasia with lower urinary tract symptoms; R73.03 Prediabetes; E78.2 Mixed hyperlipidemia; H90.3 Sensorineural hearing loss, bilateral
CPT/HCPCS: 36415; 71045; 74177; 80048; 80053; 80076; 81001; 82270; 83690; 83735; 85025; 86140; 87086; 99285; A9270; C9113; J1650; J2405; J3480; J7030; Q9967